=== PATIENT | female | born 1985 | race Caucasian/White ===

== ENCOUNTER 2023-03-26 02:51 | Emergency (ER) | payer SELFPAY ==
[2023-03-26] VITALS (38 sets, daily range): BP systolic 100–148; BP diastolic 77–117; PULSE 75–142; RESP 14–98; TEMP 36.2–37.4; O2SAT 94–100
--- NOTE | ~2023-03-26 | CT_ITS ---
EXAMINATION: CTA brain carotid DATE: 03/26/2023 03:58 INDICATION: Hanging TECHNIQUE: Computed tomographic angiography (CTA) of the head was performed without and with 100 mL O mnipaque-350 intravenous contrast. CTA of the neck was performed with intravenous contrast. The dose- length product was 1834.81 mGy-cm. Maximum intensity projection and volume rendered 3D-reconstruction s were created by the technologist on a separate workstation. Automated exposure control and iterativ e reconstruction technique were employed. COMPARISON: None. FINDINGS: HEAD CTA: There is no intracranial hemorrhage, acute infarction, or abnormal mass lesion. The ventric les are normal. There is no abnormal mass effect or midline shift. The mason-white matter differentiat ion is normal. The basal cisterns are patent. The orbits are normal. There is mild mucosal thickening of the paranasal sinuses. There is no significant stenosis of the basilar artery or posterior cerebral arteries. There is no si gnificant stenosis of the intracranial internal carotid arteries or the anterior or middle cerebral a rteries. The anterior communicating artery and posterior communicating arteries are normal. There is no aneurysm. NECK CTA: The thyroid gland is unremarkable. The submandibular and parotid glands are symmetric. Ther e is no lymphadenopathy. There are no masses identified. The airway is unremarkable. The superior med iastinum is unremarkable. There is mild cervical spondylosis. There is mild atelectasis of the visual ized lung apices. A small amount of subcutaneous gas is noted in the left supraclavicular region. There is 0% stenosis of the proximal right internal carotid artery relative to normal distal artery l umen diameter (NASCET criteria). There is 0% stenosis of the proximal left internal carotid artery re lative to normal distal artery lumen diameter. IMPRESSION: 1. No acute intracranial abnormality. Normal head CTA. 2. 0% stenosis of the proximal right internal carotid artery relative to normal distal artery lumen d iameter (NASCET criteria). 3. 0% stenosis of the proximal left internal carotid artery relative to normal distal artery lumen di ameter. Reviewed, dictated and finalized at location F. O VISUAL TECHNICIAN IMPRESSION: 1. No acute intracranial abnormality. Normal head CTA. 2. 0% stenosis of the proximal right internal carotid artery relative to normal distal artery lumen diameter (NASCET criteria). 3. 0% stenosis of the proximal left internal carotid artery relative to normal distal artery lumen diameter.
--- NOTE | ~2023-03-26 | XR_ITS ---
EXAMINATION: XR chest ET placement INDICATION: Hanging TECHNIQUE: Portable AP chest at 0314 hours COMPARISON: None available FINDINGS: The endotracheal tube ends approximately 3.1 cm above the alyse. The nasogastric tube is i n the stomach. There is mild atelectasis of the lungs. No pleural effusion or pneumothorax. IMPRESSION: 1. Mild atelectasis. 2. Endotracheal and nasogastric tubes in adequate position. Reviewed, dictated and finalized at location F. IED BEHAVIOR SCIENCE SPECIALIST
--- NOTE | 2023-03-26 02:53 | PC.NURSE ---
Addendum entered by Kimberly Rivers RN 03/26/23 06:38: 100 of rocc was given NOT succ. Original Note: Pt arrived to [facility]. Upon arrival pt is posturing and has a left sided gaze with excessive oral secretions. EMS states that upon arrival to the scene 8mg of narcan was given. Pt vitals upon arrival was 85 HR, 30 RR, 97% on room air with a temperature of 98.1. Pt is noted to have labored breathing, and making a snoring sounds. Verbal order for intubation was made by EDP Dr. Valdez at 0253 with 100 of succ, and 20 of etomidate. Pt was combative/ restless/ and agitated upon arrival. At 0256 100 of succ was given. at 0257 20 of etamodate was given. Vitals at this time were 99% room air, 90HR, 25 RR. 18 guage IV was accessed prior to arrival by EMS. Another 18 guage IV was accessed in the left wrist, along with a 20 in the left forearm. Pt was intubated at 0257 with a 7.5 tube at 22 at the lip. OG tube and temperature sensing sainz was verbally ordered at 0258. C spine precautions were also put in place and pt was put into a c collar and bed was laid flat.
--- NOTE | 2023-03-26 03:06 | ECG_ITS ---
Measurements Intervals Manning Rate: 103 P: 52 ND: 147 QRS: 70 QRSD: 86 T: 9 QT: 317 QTc: 415 Interpretive Statements SINUS TACHYCARDIA WITH SINUS ARRHYTHMIA NONSPECIFIC T-WAVE ABNORMALITY- ANT/INF LEADS BORDERLINE ECG NO PREVIOUS ECG AVAILABLE FOR COMPARISON Electronically Signed On 03-26-2023 9:19:27 SIDE DOOR WORKER by Piotr Flores D.O.
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
[2023-03-26] MEDS: LORazepam INJ (*CRX) 2 MG/ML VIAL IV PUSH ×3 (03:21→04:24)
[2023-03-26] MEDS: HYDROmorphone HCL INJ (*CRX) 1 MG/ML SYR IV PUSH ×2 (03:22→04:24)
[2023-03-26 03:26] LABS: Basophils Absolute Auto 0.1 K/mm3 (0.0-0.1); Basophils Percent Auto 0.8 % (0.2-1.2); Eosinophils Absolute Auto 0.1 K/mm3 (0-0.3); Eosinophils Percent Auto 0.6 % (0-4.4); Hematocrit 44.4 % (37.0-47.0); Hemoglobin 14.7 g/dL (12.0-15.0); Immature Granulocyte Absolute 0.04 K/mm3 (0.00-0.031); Immature Granulocyte Percent A 0.4 % (0-0.5); Lymphocytes Percent Auto 35.9 % (18.3-44.2); Mean Corpuscular HGB Conc 33.1 g/dl (32-36); Mean Corpuscular Volume 99.6 fl (80-100); Mean Platelet Volume 9.9 fl (7.4-10.4); Monocytes Absolute Auto 0.7 K/mm3 (0.1-0.6); Monocytes Percent Auto 7.2 % (2.6-8.5); Neutrophils Absolute Auto 5.5 K/mm3 (1.3-6.7); Neutrophils Percent Auto 55.1 % (45.5-73.1); Platelet Count Result 267 k/mm3 (150-375); Red Blood Count 4.46 M/mm3 (4.2-5.4)
[2023-03-26 03:30] LABS: Alveolar/Arterial O2 Gradient 599.1 mmHg; Base Excess ABG -4.7 mEq/l (+/-2.0); Fractional Inspired Oxygen 100 %; HCO3 ABG 19.2 mEq/l (22.0-26.0); Oxygen Content ABG 20.6 %vol (16.0-22.0); Oxyhemoglobin 93.1 % THb (90.0-100.0); PCO2 ABG 32.7 mmHg (35.0-45.0); PO2 ABG 81.2 mmHg (80.0-100.0); PO2 FiO2 Ratio Arterial Blood 0.81 %; Total Hemoglobin 15.7 g/dL (12.0-18.0); pH ABG 7.387 (7.350-7.450)
[2023-03-26 03:31] LABS: Device VENTILATOR; Modified Allen's Test Pass; Site Drawn LEFT RADIAL
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
[2023-03-26 03:32] LABS: Arterial Blood Gas Minute Volume 6.4 LPM; Arterial Blood Gas PEEP 5 cmH2O; Arterial Blood Gas Tidal Volume 420 ml; Arterial Blood Gas Vent Mode CMV; Arterial Blood Gas Ventilator rate 16 /MIN; Peak Inspiratory Pressure 17 cmH2O
[2023-03-26 03:37] LABS: Partial Thromboplastin Time 21.7 SECONDS (22.3-36.8); Prothrombin Time 13.7 Seconds (11.1-14.7)
[2023-03-26 03:40] LABS: Alanine Aminotransferase 34 U/L (6-35); Albumin Level 4.7 g/dL (3.5-5.1); Alkaline Phosphatase 75 U/L (38-126); Anion Gap 22 mmol/L (8-16); Aspartate Amino Transferase 35 U/L (14-36); Bilirubin,Total 0.4 mg/dL (0.2-1.3); Blood Urea Nitrogen 6 mg/dL (7-17); Calcium 8.8 mg/dL (8.4-10.2); Carbon Dioxide 15 mmol/L (22-30); Chloride 107 mmol/L (98-107); Creatine Kinase 120 U/L (30-135); Estimated CRCL calculation 79 ml/min; Estimated Glomerular Filt Rate > 60; Glucose 151 mg/dL (65-110); Lipase 73 U/L (23-300); Phosphorus 5.4 mg/dL (2.5-4.5); Potassium 2.9 mmol/L (3.4-5.0); Sodium 144 mmol/L (137-145)
[2023-03-26 03:41] LABS: Ethanol 113 mg/dL (<10)
[2023-03-26 03:50] LABS: NT Pro B Type Natriuretic Pept 27 pg/mL (19.9-100); Troponin I < 0.012 ng/mL (0.000-0.034)
[2023-03-26] MEDS: FENTANYL 2,500MCG/NS250ML(*CRX 2,500 MCG/250 ML BAG IV CONT (03:56)
[2023-03-26] MEDS: MIDAZOLAM 100MG/NS 100ML(*CRX) 100 MG/100 ML BAG IV CONT (03:57)
--- NOTE | 2023-03-26 04:10 | PC.NURSE ---
ALICIA from Dr. Valdez to increase fentanyl rate to 150mcg/hr. and 2mg Ativan IVP stat.
[2023-03-26 04:19] LABS: Lactic Acid Reflex 5.8 mmol/L (0.7-2.0)
--- NOTE | 2023-03-26 04:20 | PC.NURSE ---
Per EDP Dr. Valdez midazolam increased to 5mg/ hour. This RN confirmed with EDP Dr. Valdez increased dosage amount. EDP Dr. Valdez confirmed.
[2023-03-26 04:28] LABS: Amphetamine Screen Urine Negative (Negative); Appearance Urine Clear (Clear); Bacteria Urine None Seen /hpf; Barbiturate Screen Urine Negative (Negative); Benzodiazepines Screen Urine Negative (Negative); Bilirubin Urine Negative (Negative); Blood Urine 2+ (Negative); Cannabinoid Screen Urine Positive (Negative); Cocaine Screen Urine Negative (Negative); Color Urine Yellow (Yellow); Glucose Urine UA Negative (Negative); Ketones Urine Negative (Negative); Leukocyte Esterase Ur Negative LEU/UL (Negative); Methadone Screen Urine Negative (Negative); Need Manual Microscopic Reviewed; Nitrate Urine Negative (Negative); Opiate Screen Urine Positive (Negative); Phencyclidine Screen Urine Negative (Negative); Protein Urine 2+ mg/dL (Negative); Specific Grav Ur 1.034 (1.001-1.035); Squamous Epithelial Cell Urine Occasional /hpf (Few); Urobilinogen Urine 0.2 mg/dL (<2.0); WBC Urine 0-5 /hpf
[2023-03-26] MEDS: LORazepam INJ (*CRX) 2 MG/ML VIAL 4 MG IV PUSH (04:34)
--- NOTE | 2023-03-26 04:41 | PC.NURSE ---
Per EDP Dr. Valdez, pt is to stop fentanyl drip and to initate propofol. EDP Dr. Valdez stated to start drip at 30.
[2023-03-26] MEDS: PROPOFOL IV EMULSION 100 ML 13.09 MG IV CONT (04:46)
--- NOTE | 2023-03-26 05:07 | PC.NURSE ---
Per EDP Dr. Valdez propofol was increased to 35mcg, fentanyl was started again and rate change to 200, and midazolam was discontinued. This RN used closed loop communication to verify dosages/ routes/ and medications. EDP Dr. Valdez confirmed.
[2023-03-26 05:22] LABS: Alveolar/Arterial O2 Gradient 115.4 mmHg; Base Excess ABG -4.4 mEq/l (+/-2.0); Carboxyhemoglobin 0.7 % THb (0-2.0); Fractional Inspired Oxygen 40 %; Methemoglobin ABG 0.3 %THb (0-1.5); Oxygen Content ABG 21.2 %vol (16.0-22.0); Oxygen Saturation ABG 98.7 % (95.0-100.0); Oxyhemoglobin 97.1 % THb (90.0-100.0); PO2 ABG 134.2 mmHg (80.0-100.0); PO2 FiO2 Ratio Arterial Blood 3.36 %; Reduced Hemoglobin 1.9 %THb (0-5.0); Total Hemoglobin 15.4 g/dL (12.0-18.0); pH ABG 7.406 (7.350-7.450)
[2023-03-26 05:23] LABS: Add Urine Microscopic? YES
[2023-03-26 05:23] LABS: Arterial Blood Gas Vent Mode CMV; Arterial Blood Gas Ventilator rate 16 /MIN; Device VENTILATOR; Site Drawn RIGHT BRACHIAL
[2023-03-26 05:24] LABS: Arterial Blood Gas PEEP 5 cmH2O; Arterial Blood Gas Tidal Volume 420 ml
[2023-03-26 05:38] LABS: Influenza A QL RT-PCR Negative (Negative); Influenza B QL RT-PCR Negative (Negative); RSV RNA, RT-PCR Negative (Negative); SARS-CoV-2 RNA PCR Negative (Negative)
[2023-03-26 06:23] LABS: Reflex Lactic Acid Yes or No Add Lactic
== END 2023-03-26 06:20 | disposition short-term general hospital (02) ==
PROVIDERS: Emergency Provider Emergency Medicine
DX: T71.162A Asphyxiation due to hanging, intentional self-harm, initial encounter (principal); Z11.52 Encounter for screening for COVID-19
CPT/HCPCS: 31500; 36415; 36600; 70496; 70498; 80053; 80307; 81001; 82375; 82550; 82805; 83050; 83605; 83690; 83735; 83880; 84100; 84484; 85025; 85610; 85730; 87637; 93005; 96365; 96367; 96368; 96375; 96376; 99285; J1170; J2060; J2250; J2704; J3010; L0140; Q9967